=== PATIENT | female | born 1980 | race Two or more races ===

== ENCOUNTER → 2025-07-29 | Emergency (ER) | payer OTHER ==
[~2025-07-29] VITALS: Ht 157.5 cm; Wt 83.9 kg
[~2025-07-29] MED LIST: 0.9 % SODIUM CHLORIDE 1,000 ML IV SCH; ARBLI10 MG/1 ML; FAMOTIDINE/PF 20 MG/2 ML VIAL IV ONE; LOSARTAN POTASSIUM 25 MG TABLET PO ONE; MORPHINE SULFATE 4 MG/ML CARTRIDGE IV SCH; ONDANSETRON HCL 2 MG/ML VIAL IV ONE; PROPOFOL 10,000 MCG/ML VIAL IV PUSH ONE; TRAMADOL HCL 50 MG TABLET PO ONE; TRAMADOL HCL E100 M1 PO
[2025-07-29 18:19] LABS: BASO % 0.4 % (0.1-1.2); EOS # 0.03 (0.04-0.54); EOS % 0.3 % (0.7-7.0); LYMPH # 1.28 (1.18-3.74); LYMPH % 10.7 % (19.3-53.1); MEAN PLATELET VOLUME 10.50 fl (9.4-12.4); MONO # 0.69 (0.24-0.82); MONO % 5.8 % (4.7-12.5); NEUT # 9.89 (1.56-6.13); NEUT % 82.4 % (34.0-71.1); RED CELL DISTRIBUTION WIDTH 13.0 % (11.6-14.4)
[2025-07-29 18:43] LABS: INR 1.0
[2025-07-29 19:06] LABS: ALT/SGPT 58 U/L (12-78); AST/SGOT 38 U/L (15-37); BILIRUBIN TOTAL 0.24 mg/dL (0.3-1.2); BUN CREA RATIO 16 (7.0-25.0); CREATININE SERUM 0.63 mg/dL (0.55-1.02); GFR 103.14; GLOBULINA 4.2 G/DL (2.4-3.5); GLUCOSE FASTING 134 mg/dL (65-100); OSMOLALITY SERUM 275 MOSM/KG (275-295)
[2025-07-29 19:18] LABS: HCG QUANTITATIVE < 1 mUI/mL (1-3)
== END | disposition home or self-care (01) ==
LOC: ER 15:08
PROVIDERS: General Practice
DX: S82.852A Displaced trimalleolar fracture of left lower leg, initial encounter for closed fracture (principal); X58.XXXA Exposure to other specified factors, initial encounter; Y93.89 Activity, other specified; Y92.89 Other specified places as the place of occurrence of the external cause; Y99.9 Unspecified external cause status; E11.9 Type 2 diabetes mellitus without complications; I10 Essential (primary) hypertension